=== PATIENT | female | born 1950 | race Caucasian/White ===

== ENCOUNTER 2017-02-17 20:37 | Emergency (ER) | payer MEDICARE, BC ==
[2017-02-17] MEDS ORDERED: Bacitracin/Neomycin/Polymyxin B Oint 0.9 GM U/D Packet TOP ONE (20:47)
--- NOTE | 2017-02-17 20:47 | EDM.PDOC ---
ED HPI Skin/Rash - General Chief Complaint: Laceration Stated Complaint: left leg laceration Time Seen by Provider: 02/17/17 20:37 Source: Reports: Patient, Old records ([facility] chart /EMR), Other (friend) History Limitations: Reports: No limitations - History of Present Illness INITIAL COMMENTS - FREE TEXT/NARRATIVE: The patient was brought to the emergency room via private automobile by her friend for evaluation of a laceration of her left leg, which occurred at home at about 19:30 hours when she was weedeating without wearing long pants. No history of foreign body, paresthesias, or other complaints or injuries. Her last tetanus booster was about 10 years ago. No treatment prior to arrival. She complains of about 4/10 discomfort at laceration site Symptom Onset Date: 02/17/17 Symptom Onset Time: 19:30 Timing: Reports: still present Location, Skin: Reports: lower extremity, left. Denies: head, face, neck, chest , abdomen, back, pelvis, upper extremity, right, upper extremity, left, lower extremity, right Quality: Reports: Ache, Sharp Severity: mild Known Identified Source: yes Place of Occurrence: home Sick Contact: no Associated Symptoms: Reports: no other symptoms. 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) - Related Data Allergies Allergy/AdvReac Type Severity Reaction Status Date / Time adalimumab [From Humira] Allergy Other Verified 02/17/17 20:40 codeine Allergy Headache Verified 02/17/17 20:40 ibuprofen Allergy Stomach Verified 02/17/17 20:40 Ache methotrexate Allergy Other Verified 02/17/17 20:40 Home Meds: Ambulatory Orders Medication Instructions Recorded Confirmed ALPRAZolam [Alprazolam] 0.25 mg PO BID 02/17/17 02/17/17 Abatacept [Orencia] 500 mg IV Q30D 02/17/17 02/17/17 Acetaminophen [Tylenol Extra 500 mg PO Q6H PRN 02/17/17 02/17/17 Strength] Taty/Cell/Lipas/Malt/Prt/Lac/in 1 each PO DAILY 02/17/17 02/17/17 [Digestive Enzymes Capsule] Atenolol 50 mg PO DAILY 02/17/17 02/17/17 Cholecalciferol (Vitamin D3) 2,000 unit PO DAILY 02/17/17 02/17/17 [Vitamin D3] Cranberry Fruit Concentrate 450 mg PO BID 02/17/17 02/17/17 [Cranberry] Dextran 70/Hypromellose 15 ml OP BID 02/17/17 02/17/17 [Artificial Tears Eye Drops] predniSONE [Prednisone] 7 mg PO DAILY 02/17/17 02/17/17 traMADol [Ultram] 50 mg PO Q6H PRN 02/17/17 02/17/17 Past Medical History HEENT History: Reports: Hard of hearing, Impaired vision, Otitis media, Other ( see below). 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 Denies: Afib, Aneurysm, Blood clots/VTE/DVT, CAD, Heart Failure, High cholesterol, Hypertension, DE, PVD, Syncope Other Cardiovascular History: Unknown type of tachycardia with current beta marcia therapy, cardiomegaly by chest x-ray on 06/28/04 with no heart disease by distant echocardiogram per patient history Respiratory History: Reports: COPD, Pulmonary fibrosis, Other (see below). Denies: Asthma, Bronchitis, recurrent, Intubation, previous, PE, Pneumonia, recurrent, Pneumothorax, Sleep apnea, TB Other Respiratory History: COPD and pulmonary fibrosis by chest x-ray with no current medical therapy Gastrointestinal History: Reports: Chronic constipation, Gastritis, Hemorrhoids , Other (see below). Denies: Celiac disease, Cholelithiasis, Chronic diarrhea, Colon polyp, Diverticulosis, GERD, GI bleed, Hepatitis, Hiatal hernia, Inflammatory bowel disease, Irritable bowel syndrome, Jaundice, Pancreatitis, PUD Other Gastrointestinal History: Gastritis secondary to NSAIDs therapy Genitourinary History: Reports: UTI, recurrent. 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 Denies: Dysfunctional uterine bleeding, Endometriosis, Fibroids, Spontaneous , Therapeutic : 2 Para: 2 (Full term without complications during pregnancies or deliveries) LMP (Approximate): Menopausal (In her 50s) Musculoskeletal History: Reports: Arthritis, Back pain, chronic, Neck pain, chronic, Osteoarthritis, Osteoporosis, RA, Other (see below). Denies: Amputation, Fracture, Gout, SLE Other Musculoskeletal History: Severe rheumatoid arthritis initially diagnosed in 1968 at age 18, scoliosis Neurological History: Reports: None. Denies: Alzheimers disease, Cerebral aneurysms, Concussion, CVA, Headaches, chronic, Head trauma, Migraines, MS, Neuropathy, peripheral, Parkinson's, Reflex sympathetic dystrophy, Seizure, TIA Psychiatric History: Reports: Addiction, Anxiety, Depression, Other (see below) . Denies: Abuse, victim of, ADD, ADHD, Psych Hospitalization(s), PTSD, Suicide attempt, Suicidal ideation Other Psychiatric History: Chronic Ultram use Endocrine/Metabolic History: Reports: Osteoporosis, Vitamin D deficiency. Denies: Diabetes, type I, Diabetes, type II, Hypothyroidism, IDDM Hematologic History: Reports: None. Denies: Anemia, B12 deficiency, Blood transfusion(s), Iron deficiency Immunologic History: Reports: Immunosuppression, Other (see below). Denies: AIDS, HIV, SLE Other Immunologic History: Immunosuppression secondary to current therapy for her rheumatoid arthritis Oncologic (Cancer) History: Reports: None. Denies: Basal cell carcinoma, Cervix , Hodgkin's Lymphoma, Leukemia, Lymphoma, Malignant melanoma, Non-Hodgkin's Lymphoma, Squamous cell carcinoma Dermatologic History: Denies: Eczema, Psoriasis - Infectious Disease History Infectious Disease History: Reports: Chicken pox, Rubella. Denies: C-difficile , Measles, Meningitis, Mononucleosis, MRSA, Mumps, Pertussis (whooping cough), Rheumatic Fever, Scarlet fever, Shingles, TB, VRE - Past Surgical History Head Surgeries/Procedures: Reports: None HEENT Surgical History: Reports: Oral surgery, Other (see below). Denies: Adenoidectomy, Cataract surgery, Eye surgery, Laser surgery, LASIK, Myringotomy w tube(s), Naso-sinus surgery, Tonsillectomy Other HEENT Surgeries/Procedures: Partial uppers Cardiovascular Surgical History: Reports: None. Denies: Varicose Respiratory Surgical History: Reports: None. Denies: Thoracentesis GI Surgical History: Reports: Colonoscopy, Other (see below). Denies: Appendectomy, Cholecystectomy, EGD, Hernia, abdominal, Hernia, inguinal, Hernia repair/other, Polypectomy Other GI Surgeries/Procedures: Anoscopy in about 2006 Female Surgical History: Reports: Tubal ligation, Other (see below). Denies : Breast biopsy, section, D&C, Hysterectomy Other Female Surgeries/Procedures: Tubal ligation in 1984 Endocrine Surgical History: Reports: None. Denies: Thyroid biopsy Neurological Surgical History: Reports: None. Denies: C-Spine, Discectomy, Laminectomy, Lumbar spine, Spinal fusion, Vertebroplasty Musculoskeletal Surgical History: Reports: Arthroscopic knee, Arthroscopic procedure, Shoulder surgery, Other (see below). Denies: Carpal tunnel, Ganglion cyst, Joint replacement, Knee replacement, ORIF Other Musculoskeletal Surgeries/Procedures:: Initial arthroscopic right knee surgery in 1967 with subsequent open right knee surgery in 1977, bunionectomy, hammertoe, and neuroma excision bilateral in the Oncologic Surgical History: Reports: None. Denies: Biopsy of breast Dermatological Surgical History: Reports: None - Past Imaging History Past Imaging History: Reports: Cardiac echo (In early ) Social & Family History - Tobacco Use Smoking Status *Q: Never Smoker Smoking Cessation Information Provided To Patient: No Second Hand Smoke Exposure: No Second Hand Smoke Education Provided: No - Caffeine Use Caffeine Use: Reports: Tea (2 glasses per day). 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 Denies: fever, chills, weakness, fatigue , night sweats, diaphoresis, weight loss HEENT: Reports: Glasses, Hearing loss (Chronic left-sided near deafness). Denies: Dental pain, Ear discharge, Ear pain, Eye pain, Vertigo Respiratory: Reports: No Symptoms. Denies: Shortness of Breath, Cough Cardiovascular: Reports: No symptoms. Denies: Blood pressure problem, Dyspnea on exertion, Edema, Lightheadedness, Palpitations Endocrine: Reports: no symptoms GI/Abdominal: Reports: No symptoms. Denies: Abdominal pain, Anorexia, Black stool, Constipation, Diarrhea, Distension, Flatus, Hematochezia, Melena, Nausea , Stool incontinence, Vomiting : Reports: no symptoms. Denies: dysuria, flank pain, hematuria, urgency Musculoskeletal: Reports: leg pain (Secondary to laceration), joint pain ( Stable chronic), joint swelling (Stable chronic). Denies: neck pain, shoulder pain, arm pain, back pain, foot pain Skin: Reports: wound. Denies: diaphoresis, bruising Neurological: Reports: No Symptoms. Denies: Confusion, Dizziness, Numbness, Paresthesia, Tingling, Difficulty Walking, Weakness Psychiatric: Reports: No symptoms. Denies: Agitation, Anxiety, Depression Hematologic/Lymphatic: Reports: no symptoms Immunologic: Reports: no symptoms ED EXAM, SKIN/RASH Exam: See Below Exam Limited By: No limitations General Appearance: alert, WD/WN, no apparent distress Head: atraumatic, normocephalic Neck: normal inspection, supple, non-tender, full range of motion. No: lymphadenopathy (L), lymphadenopathy (R), thyromegaly Respiratory/Chest: no respiratory distress, lungs clear, normal breath sounds, no accessory muscle use, chest non-tender. No: pleural rub, retractions Cardiovascular: normal peripheral pulses, regular rate, rhythm, no edema, no gallop, no JVD, no murmur, no rub. No: gallop/S3, gallop/S4, friction rub Peripheral Pulses: 2+: radial (L), radial (R), dorsalis pedis (L), dorsalis pedis (R) GI/Abdominal: normal bowel sounds, soft, non tender, no organomegaly, no distention, no abnormal bruit, no mass. No: guarding (Female) Exam: Deferred Rectal (Female) Exam: Deferred Back Exam: normal inspection, full range of motion. No: CVA tenderness (L), CVA tenderness (R), muscle spasm Extremities: no pedal edema, normal capillary refill, joint swelling (Stable secondary to rheumatoid arthritis), leg pain (Palpation pain and laceration site ), limited range of motion (Secondary to diffuse severe rheumatoid arthritic changes), other (4 cm in length superficial laceration just superior to the left medial malleolus with 2 additional 2-3 cm in length superficial scratches just appeared to this area, no foreign body). No: Jey's Sign Neurological: alert, oriented, CN II-XII intact, normal cognition, normal gait, no motor/sensory deficits Psychiatric: normal affect, normal mood. No: anxious, depressed mood Skin: Warm, Dry, No rash, Wound/incision (As above). No: Diaphoretic, Ecchymosis Location, Skin: lower extremity, left Characteristics: linear, other (As above) Lymphatic: no adenopathy Course - Vital Signs Last Recorded V/S: Last Vital Signs Temp 36.8 C 02/17/17 20:45 Pulse 81 02/17/17 20:45 Resp 16 02/17/17 20:45 BP 156/72 H 02/17/17 20:45 Pulse Ox 98 02/17/17 20:45 Vital Signs - 24 hr 02/17/17 20:45 Temperature [ 36.8 C Oral] Pulse, 81 Peripheral [ Right Pulse Oximetry] Respiratory 16 Rate Blood Pressure 156/72 H [Right Upper Arm] O2 Sat by Pulse 98 Oximetry - Orders/Labs/Meds Orders: Active Orders 24 hr Category Date Time Status Vaccines to be Administered [RC] PER UNIT ROUTINE Care 02/17/17 20:48 Active Labs: None Meds: Medications Discontinued Medications Generic Name Dose Route Start Last Admin Trade Name Freq PRN Reason Stop Dose Admin Diphtheria/Tetanus/Acell Pertussis 0.5 ml 02/17/17 20:48 02/17/17 20:57 Adacel IM 02/17/17 20:49 0.5 ml .ONCE ONE Administration Neomycin/Polymyxin/Bacitracin 1 each 02/17/17 20:47 02/17/17 20:57 Triple Antibiotic Oint TOP 02/17/17 20:48 1 each ONETIME ONE Administration Medications Discontinued Medications Generic Name Dose Route Start Last Admin Trade Name Freq PRN Reason Stop Dose Admin Diphtheria/Tetanus/Acell Pertussis 0.5 ml 02/17/17 20:48 02/17/17 20:57 Adacel IM 02/17/17 20:49 0.5 ml .ONCE ONE Administration Neomycin/Polymyxin/Bacitracin 1 each 02/17/17 20:47 02/17/17 20:57 Triple Antibiotic Oint TOP 02/17/17 20:48 1 each ONETIME ONE Administration - Radiology Interpretation Free Text/Narrative:: None Departure - Departure Time of Disposition: 21:35 Disposition: Home, Self-Care 01 Condition: good Clinical Impression: Laceration, Mixed anxiety depressive disorder Rheumatoid arthritis Qualifiers: Rheumatoid arthritis location: multiple sites Rheumatoid factor presence: unspecified presence Qualified Code(s): M06.9 - Rheumatoid arthritis, unspecified Instructions: Laceration Care, Adult, [id number] Referrals: Luba Elliott PA [Primary Care Provider] - Forms: ED Department Discharge Additional Instructions: 1. Follow up with your regular provider in 10-14 days as needed, if symptoms persist. 2. Antibacterial soap wash/soak with subsequent antibacterial dressing such as Neosporin, etc. as directed 2 times per day until the wound or laceration site completely heals. Keep the area clean and dry with activity restrictions as discussed. - Problem List & Annotations (1) Laceration SNOMED Code(s): 205332782 Code(s): LKH9239 - Status: Acute Priority: High Onset Date: 02/17/17 Annotation/Comment:: No laceration repair indicated with this injury. DTaP given. Wound care discussed. High risk for infection secondary to current immunotherapy for her rheumatoid arthritis, which will be closely observed by the patient (2) Rheumatoid arthritis SNOMED Code(s): 94400463 Code(s): M06.9 - RHEUMATOID ARTHRITIS, UNSPECIFIED Status: Chronic Priority: Medium Annotation/Comment:: Stable by history Qualifiers: Rheumatoid arthritis location: multiple sites Rheumatoid factor presence: unspecified presence Qualified Code(s): M06.9 - Rheumatoid arthritis, unspecified (3) Mixed anxiety depressive disorder SNOMED Code(s): 302346147 Code(s): F41.8 - OTHER SPECIFIED ANXIETY DISORDERS Status: Chronic Priority: Medium Annotation/Comment:: Stable by history - Problem List Review Problem List Initiated/Reviewed/Updated: Yes - My Orders Last 24 Hours: My Active Orders 02/17/17 20:48 Vaccines to be Administered [RC] PER UNIT ROUTINE - Assessment/Plan Last 24 Hours: My Active Orders 02/17/17 20:48 Vaccines to be Administered [RC] PER UNIT ROUTINE Assessment:: As above Plan: As above. Extensive precautions were given to the patient, who is in agreement with the treatment plan. See Patient Instructions for further treatment and plan.
[2017-02-17] MEDS ORDERED: Diphtheria,Pertussis(Acell),Tetanus Vaccine 0.5 ML SDV IM ONE (20:48)
[2017-02-17 20:51] VITALS: BP 156/72
== END 2017-02-17 21:35 | disposition home or self-care (01) ==
LOC: LL.ED 20:37
DX: S91.012A Laceration without foreign body, left ankle, initial encounter (principal); F41.8 Other specified anxiety disorders; M06.9 Rheumatoid arthritis, unspecified; Z88.5 Allergy status to narcotic agent; V89.2XXA Person injured in unspecified motor-vehicle accident, traffic, initial encounter; Z79.899 Other long term (current) drug therapy
CPT/HCPCS: 90471; 90715; 99283

== ENCOUNTER 2018-06-01 12:27 | Emergency (ER) | payer MEDICARE, BC ==
[2018-06-01 12:28] VITALS: BP 126/69
--- NOTE | 2018-06-01 12:55 | EDM.PDOC ---
ED HPI GENERAL MEDICAL PROBLEM - General Chief Complaint: General Stated Complaint: Thoracic pain Time Seen by Provider: 06/01/18 12:29 Source of Information: Reports: Patient History Limitations: Reports: No Limitations - History of Present Illness INITIAL COMMENTS - FREE TEXT/NARRATIVE: Patient is a 68-year-old seen with midsternal chest pain patient states that she was working when she developed the mid chest pain the pain is worse with deep breathing and coughing and palpation. Patient took Motrin which made the pain improve Onset: Today, Sudden Duration: Hour(s):, Constant Location: Reports: Chest Quality: Reports: Ache Severity: Moderate Improves with: Reports: Medication, Rest Worsens with: Reports: Breathing, Movement Context: Reports: Exercise Associated Symptoms: Reports: No Other Symptoms Thoracic Pain Score (Numeric/FACES): 5 - Related Data Allergies Allergy/AdvReac Type Severity Reaction Status Date / Time adalimumab [From Humira] Allergy Other Verified 02/17/17 20:40 codeine Allergy Headache Verified 02/17/17 20:40 ibuprofen Allergy Stomach Verified 02/17/17 20:40 Ache methotrexate Allergy Other Verified 02/17/17 20:40 minocycline Allergy Other Verified 06/01/18 12:38 venlafaxine [From Effexor] Allergy Other Verified 06/01/18 12:38 Home Meds: Home Meds ALPRAZolam [Alprazolam] 0.25 mg PO BID 02/17/17 [History] Abatacept [Orencia] 500 mg IV Q30D 02/17/17 [History] Acetaminophen [Tylenol Extra Strength] 500 mg PO Q6H PRN 02/17/17 [History] Taty/Cell/Lipas/Malt/Prt/Lac/in [Digestive Enzymes Capsule] 1 each PO DAILY 02/17 [History] Atenolol 50 mg PO DAILY 02/17/17 [History] Cholecalciferol (Vitamin D3) [Vitamin D3] 2,000 unit PO DAILY 02/17/17 [History] Cranberry Fruit Concentrate [Cranberry] 450 mg PO BID 02/17/17 [History] Dextran 70/Hypromellose [Artificial Tears Eye Drops] 15 ml OP BID 02/17/17 [ History] predniSONE [Prednisone] 7 mg PO DAILY 02/17/17 [History] traMADol [Ultram] 50 mg PO Q6H PRN 02/17/17 [History] Past Medical History HEENT History: Reports: Hard of Hearing, Impaired Vision, Otitis Media, Other ( See Below) Other HEENT History: 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 secondary to previous chronic and recurrent otitis media as a child, patient wears glasses, dry eye syndrome Cardiovascular History: Reports: Arrhythmia, Cardiomyopathy, Other (See Below) Other Cardiovascular History: Unknown type of tachycardia with current beta marcia therapy, cardiomegaly by chest x-ray on 06/28/04 with no heart disease by distant echocardiogram per patient history Respiratory History: Reports: COPD, Pulmonary Fibrosis, Other (See Below) Other Respiratory History: COPD and pulmonary fibrosis by chest x-ray with no current medical therapy Gastrointestinal History: Reports: Chronic Constipation, Gastritis, Hemorrhoids , Other (See Below) Other Gastrointestinal History: Gastritis secondary to NSAIDs therapy Genitourinary History: Reports: UTI, Recurrent 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 Denies: Dysfunctional Uterine Bleeding, Endometriosis, Fibroids, Spontaneous , Therapeutic Musculoskeletal History: Reports: Arthritis, Back Pain, Chronic, Neck Pain, Chronic, Osteoarthritis, Osteoporosis, RA, Other (See Below) Other Musculoskeletal History: Severe rheumatoid arthritis initially diagnosed in 1967 at age 18, scoliosis Neurological History: Reports: None. Denies: Alzheimers Disease, Cerebral Aneurysms, Concussion, CVA, Headaches, Chronic, Head Trauma, Migraines, MS, Neuropathy, Peripheral, Parkinson's, Reflex Sympathetic Dystrophy, Seizure, TIA Psychiatric History: Reports: Addiction, Anxiety, Depression, Other (See Below) Other Psychiatric History: Chronic Ultram use Endocrine/Metabolic History: Reports: Osteoporosis, Vitamin D Deficiency Hematologic History: Reports: None. 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 Denies: Basal Cell Carcinoma, Cervix , Hodgkin's Lymphoma, Leukemia, Lymphoma, Malignant Melanoma, Non-Hodgkin's Lymphoma, Squamous Cell Carcinoma - Infectious Disease History Infectious Disease History: Reports: Chicken Pox, Rubella - Past Surgical History HEENT Surgical History: Reports: Oral Surgery, Other (See Below) GI Surgical History: Reports: Colonoscopy, Other (See Below) Female Surgical History: Reports: Tubal Ligation, Other (See Below) Musculoskeletal Surgical History: Reports: Arthroscopic Knee, Arthroscopic Procedure, Shoulder Surgery, Other (See Below) - Past Imaging History Past Imaging History: Reports: Cardiac Echo Social & Family History - Tobacco Use Smoking Status *Q: Never Smoker Second Hand Smoke Exposure: Yes - Caffeine Use Caffeine Use: Reports: Tea - Recreational Drug Use Recreational Drug Use: No - Living Situation & Occupation Living situation: Reports: , Alone Occupation: Retired ED ROS GENERAL - Review of Systems Review Of Systems: See Below Constitutional: Reports: No Symptoms HEENT: Reports: No Symptoms Respiratory: Reports: Cough Cardiovascular: Reports: No Symptoms, Chest Pain Endocrine: Reports: No Symptoms GI/Abdominal: Reports: No Symptoms Musculoskeletal: Reports: Muscle Pain Skin: Reports: No Symptoms Neurological: Reports: No Symptoms Psychiatric: Reports: No Symptoms Hematologic/Lymphatic: Reports: No Symptoms Immunologic: Reports: No Symptoms ED EXAM, GENERAL - Physical Exam Exam: See Below Exam Limited By: No Limitations General Appearance: Alert, WD/WN, No Apparent Distress Ears: Normal External Exam Ear Exam: Bilateral Ear: Auricle Normal, Canal Normal, TM normal Nose: Normal Inspection, Normal Mucosa, No Blood Throat/Mouth: Normal Inspection, Normal Lips, Normal Teeth, Normal Gums, Normal Oropharynx, Normal Voice, No Airway Compromise Head: Atraumatic, Normocephalic Neck: Normal Inspection, Supple, Non-Tender, Full Range of Motion Respiratory/Chest: Lungs Clear, Normal Breath Sounds. No: Chest Non-Tender Cardiovascular: Normal Peripheral Pulses, Regular Rate, Rhythm, No Edema, No Gallop, No JVD, No Murmur, No Rub GI/Abdominal: Normal Bowel Sounds, Soft, Non-Tender, No Organomegaly, No Distention, No Abnormal Bruit, No Mass (Female) Exam: Deferred Course - Vital Signs Last Recorded V/S: Last Vital Signs Temp 98.3 F 06/01/18 12:28 Pulse 74 06/01/18 12:28 Resp 12 06/01/18 12:28 BP 126/69 06/01/18 12:28 Pulse Ox 100 06/01/18 12:28 - Orders/Labs/Meds Orders: Active Orders 24 hr Category Date Time Status EKG Documentation Completion [RC] ASDIRECTED Care 06/01/18 12:40 Active Chest 2V [CR] Stat Exams 06/01/18 12:40 Ordered BMP [BASIC METABOLIC PANEL,BMP] [CHEM] Stat Lab 06/01/18 12:45 Received CBC WITH AUTO DIFF [HEME] Stat Lab 06/01/18 12:45 Received TROPONIN I [CHEM] Stat Lab 06/01/18 12:45 Received EKG 12 Lead [EK] Routine Ther 06/01/18 12:39 Ordered Departure - Departure Time of Disposition: 12:58 Disposition: Home, Self-Care 01 Condition: Good Clinical Impression: Costochondritis, acute - Discharge Information *PRESCRIPTION DRUG MONITORING PROGRAM REVIEWED*: Not Applicable *COPY OF PRESCRIPTION DRUG MONITORING REPORT IN PATIENT ANTWAN: Not Applicable Referrals: Kirstin Mendez PA-C [Primary Care Provider] - Care Plan Goals: Restart her pain medications this will help with chest pain which is musculoskeletal and follow-up with primary as needed - My Orders Last 24 Hours: My Active Orders 06/01/18 12:39 EKG 12 Lead [EK] Routine 06/01/18 12:40 EKG Documentation Completion [RC] ASDIRECTED Chest 2V [CR] Stat 06/01/18 12:45 BMP [BASIC METABOLIC PANEL,BMP] [CHEM] Stat CBC WITH AUTO DIFF [HEME] Stat TROPONIN I [CHEM] Stat - Assessment/Plan Last 24 Hours: My Active Orders 06/01/18 12:39 EKG 12 Lead [EK] Routine 06/01/18 12:40 EKG Documentation Completion [RC] ASDIRECTED Chest 2V [CR] Stat 06/01/18 12:45 BMP [BASIC METABOLIC PANEL,BMP] [CHEM] Stat CBC WITH AUTO DIFF [HEME] Stat TROPONIN I [CHEM] Stat
[2018-06-01 13:09] LABS: CHLORIDE,CL 105 mmol/L (98-107); SODIUM,NA 141 mmol/L (136-145)
== END 2018-06-01 13:25 | disposition home or self-care (01) ==
LOC: LL.ED 12:27
DX: M94.0 Chondrocostal junction syndrome [Tietze] (principal); J44.9 Chronic obstructive pulmonary disease, unspecified; M06.9 Rheumatoid arthritis, unspecified; Z88.5 Allergy status to narcotic agent; Z88.8 Allergy status to other drugs, medicaments and biological substances; Z79.899 Other long term (current) drug therapy
CPT/HCPCS: 36415; 71046; 80048; 84484; 85025; 93005; 99284

== ENCOUNTER 2019-11-25 18:39 | Emergency (ER) | payer MEDICARE, BC ==
[2019-11-25 18:44] VITALS: PULSE 70
[2019-11-25] MEDS ORDERED: Loperamide 2 MG Tab PO ONE (19:26)
[2019-11-25 19:34] LABS: CHLORIDE,CL 100 mmol/L (98-107); SODIUM,NA 139 mmol/L (136-145)
--- NOTE | 2019-11-25 19:36 | EDM.PDOC ---
ED HPI GENERAL MEDICAL PROBLEM - General Chief Complaint: Gastrointestinal Problem Stated Complaint: diarrhea Time Seen by Provider: 11/25/19 19:16 Source of Information: Reports: Patient History Limitations: Reports: No Limitations - History of Present Illness INITIAL COMMENTS - FREE TEXT/NARRATIVE: Patient comes to ER with complaint of approx 12 episodes of loose stools over the last 24 hours. No emesis/nausea. No fevers/chills. Has some fatigue and intermittent abdominal cramping. Was worried due to history of norovirus that led to her needing to be hospitalized a few years ago. No HEENT changes such as PEREZ/sore throat/congestion. No RESP changes such as cough/wheeze/SOB. Denies palpitations/chest discomfort. No back pain. Does not have dysuria/frequency/hematuria. No appetite. Has had mostly gatorade since diarrhea started. No body aches or other musculoskeletal changes. Has not taken any meds for the diarrhea. Generalized Pain Score (Numeric/FACES): 4 - Related Data Allergies Allergy/AdvReac Type Severity Reaction Status Date / Time adalimumab [From Humira] Allergy Other Verified 11/25/19 19:10 aspirin Allergy Stomach Verified 11/25/19 19:10 Ache atorvastatin Allergy Joint Pain Verified 11/25/19 19:10 codeine Allergy Headache Verified 11/25/19 19:10 hydrocodone Allergy Headache Verified 11/25/19 19:10 ibuprofen Allergy Stomach Verified 11/25/19 19:10 Ache methotrexate Allergy Other Verified 11/25/19 19:10 minocycline Allergy Other Verified 11/25/19 19:10 rofecoxib Allergy Other Verified 11/25/19 19:10 sertraline Allergy Other Verified 11/25/19 19:10 venlafaxine [From Effexor] Allergy Other Verified 11/25/19 19:10 Home Meds: Home Meds ALPRAZolam [Alprazolam] 0.25 mg PO BID 02/17/17 [History] Abatacept [Orencia] 500 mg IV Q30D 02/17/17 [History] Acetaminophen [Tylenol Extra Strength] 500 mg PO Q6H PRN 02/17/17 [History] Taty/Cell/Lipas/Malt/Prt/Lac/in [Digestive Enzymes Capsule] 1 each PO DAILY 02/17 [History] Cholecalciferol (Vitamin D3) [Vitamin D3] 2,000 unit PO DAILY 02/17/17 [History] Cranberry Fruit Concentrate [Cranberry] 3 cap PO BID 02/17/17 [History] Dextran 70/Hypromellose [Artificial Tears Eye Drops] 15 ml OP BID 02/17/17 [ History] atenoloL [Atenolol] 50 mg PO DAILY 02/17/17 [History] predniSONE [Prednisone] 5 mg PO DAILY 02/17/17 [History] traMADol [Ultram] 1 - 2 tab PO Q6H PRN 02/17/17 [History] Calcium Carbonate [Tums Extra Strength] 1 tab PO Q4H PRN 11/25/19 [History] Multivitamin [Poly-Vitamin] 1 tab PO DAILY 11/25/19 [History] diphenhydrAMINE HCl [Benadryl] 1 tab PO ASDIRECTED PRN 11/25/19 [History] predniSONE [Prednisone] 1 mg PO DAILY 11/25/19 [History] Past Medical History HEENT History: Reports: Hard of Hearing, Impaired Vision, Otitis Media, Other ( See Below) Other HEENT History: 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 secondary to previous chronic and recurrent otitis media as a child, patient wears glasses, dry eye syndrome Cardiovascular History: Reports: Arrhythmia, Cardiomyopathy, Other (See Below) Other Cardiovascular History: Unknown type of tachycardia with current beta marcia therapy, cardiomegaly by chest x-ray on 06/28/04 with no heart disease by distant echocardiogram per patient history Respiratory History: Reports: COPD, Pulmonary Fibrosis, Other (See Below) Other Respiratory History: COPD and pulmonary fibrosis by chest x-ray with no current medical therapy Gastrointestinal History: Reports: Chronic Constipation, Gastritis, Hemorrhoids , Other (See Below) Other Gastrointestinal History: Gastritis secondary to NSAIDs therapy Genitourinary History: Reports: UTI, Recurrent [employer] History: Reports: . Denies: Dysfunctional Uterine Bleeding, Endometriosis, Fibroids, Spontaneous , Therapeutic Musculoskeletal History: Reports: Arthritis, Back Pain, Chronic, Neck Pain, Chronic, Osteoarthritis, Osteoporosis, RA, Other (See Below) Other Musculoskeletal History: Severe rheumatoid arthritis initially diagnosed in 1968 at age 18, scoliosis Neurological History: Reports: None. Denies: Alzheimers Disease, Cerebral Aneurysms, Concussion, CVA, Headaches, Chronic, Head Trauma, Migraines, MS, Neuropathy, Peripheral, Parkinson's, Reflex Sympathetic Dystrophy, Seizure, TIA Psychiatric History: Reports: Addiction, Anxiety, Depression, Other (See Below) Other Psychiatric History: Chronic Ultram use Endocrine/Metabolic History: Reports: Osteoporosis, Vitamin D Deficiency Hematologic History: Reports: None. 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 Denies: Basal Cell Carcinoma, Cervix , Hodgkin's Lymphoma, Leukemia, Lymphoma, Malignant Melanoma, Non-Hodgkin's Lymphoma, Squamous Cell Carcinoma - Infectious Disease History Infectious Disease History: Reports: Chicken Pox, Rubella - Past Surgical History HEENT Surgical History: Reports: Oral Surgery, Other (See Below) GI Surgical History: Reports: Colonoscopy, Other (See Below) Female Surgical History: Reports: Tubal Ligation, Other (See Below) Musculoskeletal Surgical History: Reports: Arthroscopic Knee, Arthroscopic Procedure, Shoulder Surgery, Other (See Below) - Past Imaging History Past Imaging History: Reports: Cardiac Echo Social & Family History - Caffeine Use Caffeine Use: Reports: Tea - Living Situation & Occupation Living situation: Reports: , Alone Occupation: Retired ED ROS GENERAL - Review of Systems Review Of Systems: Comprehensive ROS is negative, except as noted in HPI. ED EXAM, GENERAL - Physical Exam Exam: See Below Exam Limited By: No Limitations General Appearance: Alert, WD/WN, No Apparent Distress Eye Exam: Bilateral Eye: EOMI, PERRL Ears: Hearing Grossly Normal Nose: No: Nasal Deformity, Nasal Swelling, Nasal Drainage Throat/Mouth: Normal Lips, Normal Voice, No Airway Compromise Head: Atraumatic, Normocephalic Neck: Supple, Non-Tender, Full Range of Motion Respiratory/Chest: No Respiratory Distress, Lungs Clear, Normal Breath Sounds, No Accessory Muscle Use, Chest Non-Tender Cardiovascular: Regular Rate, Rhythm, No Edema, No Murmur GI/Abdominal: Normal Bowel Sounds, Soft, Non-Tender, No Distention, No Abnormal Bruit, No Mass (Female) Exam: Deferred Rectal (Female) Exam: Deferred Back Exam: Normal Inspection. No: CVA Tenderness (L), CVA Tenderness (R), Muscle Spasm Extremities: Normal Inspection, Normal Capillary Refill Neurological: Alert, Oriented, Normal Cognition, Normal Gait Psychiatric: Normal Affect, Normal Mood Skin Exam: Warm, Dry, Intact, Normal Color Course - Vital Signs Last Recorded V/S: Last Vital Signs Temp 37.3 C 11/25/19 18:43 Pulse 70 11/25/19 18:43 Resp 16 11/25/19 18:43 BP 127/74 11/25/19 18:43 Pulse Ox 98 11/25/19 18:43 - Orders/Labs/Meds Orders: Active Orders 24 hr Category Date Time Status Abdomen 2V AP Flat Upright [CR] Stat Exams 11/25/19 19:17 Ordered COMPREHENSIVE METABOLIC PN,CMP [CHEM] Stat Lab 11/25/19 19:05 Received Labs: Laboratory Tests 11/25/19 11/25/19 Range/Units 19:00 19:05 WBC 20.7 H (4.0-10.2) K/uL RBC 5.40 H (3.77-5.09) M/uL Hgb 15.3 D (11.7-15.5) g/dL Hct 47.1 H (34.0-46.0) % MCV 87.2 (84.0-98.0) fL MCH 28.3 (28.2-33.3) pg MCHC 32.5 (31.7-36.0) g/dL RDW 14.5 H (11.2-14.1) % Plt Count 366 H (150-350) K/uL Neut % (Auto) 81.8 H (45.0-80.0) % Lymph % (Auto) 10.4 (10.0-50.0) % [place] % (Auto) 7.3 (2.0-14.0) % Eos % (Auto) 0.2 (0.0-5.0) % Baso % (Auto) 0.3 (0.0-2.0) % Neut # (Auto) 16.92 H (1.40-7.00) K/uL Lymph # (Auto) 2.16 (0.50-3.50) K/uL [place]ax # (Auto) 1.51 H (0.00-1.00) K/uL Eos # (Auto) 0.04 (0.00-0.50) K/uL Baso # (Auto) 0.06 (0.00-0.20) K/uL Specimen Type Urinblad Urine Color Dark yellow Urine Appearance Clear Urine pH 5.5 (5.0-9.0) Ur Specific Kegley 1.020 (1.005-1.030) Urine Protein Negative (NEGATIVE) mg/dL Urine Glucose (UA) Negative (NEGATIVE) mg/dL Urine Ketones Negative (NEGATIVE) mg/dL Urine Occult Blood Moderate H (NEGATIVE) Urine Nitrite Negative (NEGATIVE) Urine Bilirubin Negative (NEGATIVE) Urine Urobilinogen 0.2 (0.2-1.0) E.U./dL Ur Leukocyte Esterase Negative (NEGATIVE) Urine RBC 5-10 H /HPF Urine WBC 5-10 H /HPF Ur Epithelial Cells Few /LPF Urine Bacteria Few (NONE TO FEW) /HPF Urine Mucus Moderate H (NEGATIVE) /LPF Meds: Medications Discontinued Medications Generic Name Dose Route Start Last Admin Trade Name Freq PRN Reason Stop Dose Admin Loperamide HCl 4 mg 11/25/19 19:26 Imodium Ad PO 11/25/19 19:27 ONETIME ONE - Re-Assessments/Exams Free Text/Narrative Re-Assessment/Exam: 11/25/19 19:37 WBC elevated at 20,000. Suspect in part due to gastroenteritis, and also due to chronic daily prednisone patient takes for her R.A. Unremarkable physical exam. Normal vital signs. UA shows no evidence of dehydration and does not suggest UTI at this time. No L.E. or nitrite noted. Minimal bacteria. Xray shows some areas of gaseous distention and moderate stool. Does not suggest obstruction or ileus but needs to be reviewed by Radiology. Will treat conservatively for now. Single dose of Imodium given. Patient to observe for changes over the next 12-24 hours and is to follow up as needed if additional problems develop or if no significant improvement noted by Wednesday morning. She does have history of chronic constipation by history due to chronic pain meds for her arthritis. Therefore she is cautioned against taking much additional Imodium. Ok to repeat single dose Imodium tomorrow morning if loose stools continue. Departure - Departure Time of Disposition: 19:46 Disposition: Home, Self-Care 01 Condition: Good Clinical Impression: Diarrhea Qualifiers: Diarrhea type: unspecified type Qualified Code(s): R19.7 - Diarrhea, unspecified - Discharge Information *PRESCRIPTION DRUG MONITORING PROGRAM REVIEWED*: Not Applicable *COPY OF PRESCRIPTION DRUG MONITORING REPORT IN PATIENT ANTWAN: Not Applicable Referrals: Kirstin Mendez PA-C [Primary Care Provider] - Additional Instructions: See how things go over the next 12-24 hours. See if any new symptoms develop, such as fever, etc. Avoid taking more Imodium as we discussed due to your history of constipation but it is ok to take another pill tomorrow if you are still having frequent issues with diarrhea. Sometimes chronic constipation can lead to diarrhea developing even though you are still constipated. This may need to be looked into if it starts to appear that the diarrhea does not behave like viral gastroenteritis. Follow up in the ER if you have sudden worsening problems. Otherwise follow up in clinic on Wednesday for recheck if you have not noticed significant improvement in symptoms. Sepsis Event Note - Evaluation Sepsis Screening Result: No Definite Risk - Focused Exam Vital Signs: Vital Signs Temp Pulse Resp BP Pulse Ox 11/25/19 18:43 37.3 C 70 16 127/74 98 Date Exam was Performed: 11/25/19 Time Exam was Performed: 19:28 - My Orders Last 24 Hours: My Active Orders 11/25/19 19:05 COMPREHENSIVE METABOLIC PN,CMP [CHEM] Stat 11/25/19 19:17 Abdomen 2V AP Flat Upright [CR] Stat - Assessment/Plan Last 24 Hours: My Active Orders 11/25/19 19:05 COMPREHENSIVE METABOLIC PN,CMP [CHEM] Stat 11/25/19 19:17 Abdomen 2V AP Flat Upright [CR] Stat
[2019-11-25 20:23] VITALS: BP 110/58
== END 2019-11-25 20:00 | disposition home or self-care (01) ==
LOC: LL.ED 18:39
DX: R19.7 Diarrhea, unspecified (principal); J44.9 Chronic obstructive pulmonary disease, unspecified; Z88.1 Allergy status to other antibiotic agents; Z88.5 Allergy status to narcotic agent; Z88.6 Allergy status to analgesic agent; Z88.8 Allergy status to other drugs, medicaments and biological substances
CPT/HCPCS: 36415; 74019; 80053; 81001; 85025; 87804; 99284; A9270; 99283

== ENCOUNTER 2020-09-10 11:47 | Emergency (ER) | payer MEDICARE, BC ==
--- NOTE | 2020-09-10 11:54 | EDM.PDOC ---
ED HPI GENERAL MEDICAL PROBLEM - General Chief Complaint: Upper Extremity Injury/Pain Stated Complaint: fall, shoulder pain Time Seen by Provider: 09/10/20 11:47 Source of Information: Reports: Patient, Old Records ([facility] chart/EMR) History Limitations: Reports: No Limitations - History of Present Illness INITIAL COMMENTS - FREE TEXT/NARRATIVE: The patient was brought to the emergency room via private automobile by her daughter for evaluation of 05/27 right shoulder pain after a minor fall in the alley at her home at 10:45 AM this morning. She apparently slipped on the ice landing on her right shoulder and cheek with no history of other significant head injury, loss of consciousness, headaches, visual changes, neck/back pain, neurological deficits, or other complaints or injuries. She has not injured this shoulder in the past and is right-handed. Patient did take 50 mg of tramadol and apply ice shortly after the above accident with little improvement of her symptoms. The patient denies any chest pain/pressure, heart flutter, dizziness, orthostasis, orthopnea, diaphoresis, paresthesias, recent decreased exercise tolerance, or any other anginal-type symptoms. No recent history of abdominal pain, heartburn, nausea, diarrhea, melena, gross hematochezia, or any food intolerance, including fatty foods, etc.. The patient also denies any re cent fever, cough, wheezing, dyspnea, etc.. Onset: Today, Sudden Onset Date: 09/10/20 Onset Time: 10:45 Duration: Constant Location: Reports: Face, Upper Extremity, Right. Denies: Head, Neck, Chest, Abdomen, Back, Pelvis, Upper Extremity, Left, Lower Extremity, Left, Lower Extremity, Right, Radiates to Quality: Reports: Ache, Same as Previous Episode Severity: Moderate Improves with: Reports: Rest Worsens with: Reports: Movement Context: Reports: Trauma (As above) Associated Symptoms: Denies: Confusion, Chest Pain, Cough, cough w sputum, Diaphoresis, Fever/Chills, Headaches, Loss of Appetite, Nausea/Vomiting, Rash, Seizure, Shortness of Breath, Syncope, Weakness Treatments MUSE[employer] TOUR GUIDE: Reports: Cold Therapy, Other Medication(s) Right Shoulder Pain Score (Numeric/FACES): 8 - Related Data Allergies Allergy/AdvReac Type Severity Reaction Status Date / Time adalimumab [From Humira] Allergy Other Verified 09/10/20 11:56 aspirin Allergy Stomach Verified 09/10/20 11:56 Ache atorvastatin Allergy Joint Pain Verified 09/10/20 11:56 codeine Allergy Headache Verified 09/10/20 11:56 hydrocodone Allergy Headache Verified 09/10/20 11:56 ibuprofen Allergy Stomach Verified 09/10/20 11:56 Ache methotrexate Allergy Other Verified 09/10/20 11:56 minocycline Allergy Other Verified 09/10/20 11:56 rofecoxib Allergy Other Verified 09/10/20 11:56 sertraline Allergy Other Verified 09/10/20 11:56 venlafaxine [From Effexor] Allergy Other Verified 09/10/20 11:56 Home Meds: Home Meds ALPRAZolam [Alprazolam] 0.25 mg PO BID 02/17/17 [History] Abatacept [Orencia] 500 mg IV Q30D 02/17/17 [History] Acetaminophen [Tylenol Extra Strength] 500 mg PO Q6H PRN 02/17/17 [History] Taty/Cell/Lipas/Malt/Prt/Lac/in [Digestive Enzymes Capsule] 1 each PO DAILY 02/17/17 [History] Cholecalciferol (Vitamin D3) [Vitamin D3] 2,000 unit PO DAILY 02/17/17 [History] Cranberry Fruit Concentrate [Cranberry] 1 cap PO DAILY 02/17/17 [History] Dextran 70/Hypromellose [Artificial Tears Eye Drops] 15 ml OP BID 02/17/17 [History] atenoloL [Atenolol] 50 mg PO DAILY 02/17/17 [History] predniSONE [Prednisone] 5 mg PO DAILY 02/17/17 [History] traMADol [Ultram] 1 - 2 tab PO Q6H PRN 02/17/17 [History] Calcium Carbonate [Tums Extra Strength] 1 tab PO Q4H PRN 11/25/19 [History] Multivitamin [Poly-Vitamin] 1 tab PO DAILY 11/25/19 [History] diphenhydrAMINE HCL [Benadryl] 1 tab PO ASDIRECTED PRN 11/25/19 [History] predniSONE [Prednisone] 1 mg PO DAILY 11/25/19 [History] Past Medical History HEENT History: Reports: Hard of Hearing, Impaired Vision, Otitis Media, Other (See Below). 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 Patient wears glasses, dry eye syndrome. Cardiovascular History: Reports: Arrhythmia, Cardiomyopathy, Other (See Below). Denies: Afib, Aneurysm, Blood Clots/VTE/DVT, CAD, Heart Failure, High Cholesterol, Hypertension, [place], PVD, Syncope Other Cardiovascular History: Unknown type of tachycardia with current beta marcia therapy, cardiomegaly by chest x-ray on 06/28/04 with no heart disease by distant echocardiogram per patient history Respiratory History: Reports: COPD, Intubation, Previous, Pulmonary Fibrosis, Other (See Below). Denies: Asthma, Bronchitis, Recurrent, Intubation, Difficult , PE, Pneumonia, Recurrent, Pneumothorax, Sleep Apnea, TB Other Respiratory History: COPD and pulmonary fibrosis by chest x-ray with no current medical therapy Gastrointestinal History: Reports: Chronic Constipation, Gastritis, Hemorrhoids, Other (See Below). Denies: Celiac Disease, Cholelithiasis, Chronic Diarrhea, Colon Polyp, Fecal Incontinence, GERD, GI Bleed, Hepatitis, Hiatal Hernia, Inflammatory Bowel Disease, Irritable Bowel Syndrome, Jaundice, Pancreatitis, PUD Other Gastrointestinal History: Gastritis secondary to NSAIDs therapy Genitourinary History: Reports: UTI, Recurrent. Denies: Acute Renal Failure, Chronic Renal Insuffiency, Renal Calculus, STD, Urinary Incontinence GOLD CUTTER History: Reports: . Denies: Dysfunctional Uterine Bleeding, Endometriosis, Fibroids, Spontaneous , Therapeutic : 2 Para: 2 LMP (Approximate): Other (See Below) Other GOLD CUTTER History: Menopause in her 50s. Full term without complications during pregnancies or deliveries. Musculoskeletal History: Reports: Arthritis, Back Pain, Chronic, Neck Pain, Chronic, Osteoarthritis, Osteoporosis, RA, Other (See Below). Denies: Amputation, Fracture, Gout, SLE Other Musculoskeletal History: Severe rheumatoid arthritis initially diagnosed in 1967 at age 18 with current DMARD and prednisone therapy. Scoliosis. Neurological History: Reports: None. Denies: Alzheimers Disease, Cerebral Aneurysms, Concussion, CVA, Headaches, Chronic, Head Trauma, Migraines, MS, Neuropathy, Peripheral, Parkinson's, Reflex Sympathetic Dystrophy, Seizure, TIA Psychiatric History: Reports: Addiction, Anxiety, Depression, Other (See Below). Denies: Abuse, Victim of, ADD, ADHD, Alzheimers Disease, Dementia, Psych Hospitalization(s), PTSD, Suicide Attempt, Suicidal Ideation Other Psychiatric History: Chronic Ultram and Xanax use. Endocrine/Metabolic History: Reports: Osteopenia, Osteoporosis, Vitamin D Deficiency. Denies: Diabetes, Type I, Diabetes, Type II, Hypothyroidism, IDDM, Obesity/BMI 30+ Hematologic History: Reports: None. Denies: Anemia, B12 Deficiency, Blood Transfusion(s), Iron Deficiency Immunologic History: Reports: Immunosuppression, Other (See Below). Denies: SLE Other Immunologic History: Immunosuppression secondary to current therapy for her rheumatoid arthritis Oncologic (Cancer) History: Reports: None. Denies: Basal Cell Carcinoma, Cervix, Hodgkin's Lymphoma, Leukemia, Lymphoma, Malignant Melanoma, Non- Hodgkin's Lymphoma, Ovarian, Squamous Cell Carcinoma, Uterine Dermatologic History: Reports: None. Denies: Eczema, Psoriasis - Infectious Disease History Infectious Disease History: Reports: Chicken Pox, Rubella, Other (See Below). Denies: C-Difficile, Measles, Meningitis, Mononucleosis, MRSA, Mumps, Novel Coronavirus, Rheumatic Fever, Scarlet Fever, Shingles, TB, VRE Other Infectious Disease History: Severe norovirus infection in about 2017 requiring hospitalization for her GI symptoms. - Past Surgical History Head Surgeries/Procedures: Reports: None HEENT Surgical History: Reports: Oral Surgery, Other (See Below). Denies: Adenoidectomy, Cataract Surgery, Eye Surgery, Laser Surgery, LASIK, Myringotomy w Tube(s), Naso-Sinus Surgery, Tonsillectomy Other HEENT Surgeries/Procedures: Multiple teeth extractions with no partials, etc. Cardiovascular Surgical History: Reports: None. Denies: Varicose Respiratory Surgical History: Reports: None. Denies: Thoracentesis GI Surgical History: Reports: Colonoscopy, Other (See Below). Denies: Appendectomy, EGD, Hernia, Abdominal, Hernia, Inguinal, Hernia Repair/Other, Polypectomy Other GI Surgeries/Procedures: Colonoscopy in her early 60s. Anoscopy in about 2006. Female Surgical History: Reports: Tubal Ligation, Other (See Below). Denies: Breast Biopsy, Breast Implant, Section, D&C, Hysterectomy, Oophorectomy, Salpingo-Oophorectomy Other Female Surgeries/Procedures: Bilateral tubal ligation 1984. Endocrine Surgical History: Reports: None. Denies: Thyroid Biopsy Neurological Surgical History: Reports: None. Denies: C-Spine, Discectomy, Laminectomy, Lumbar Spine, Sacral Spine, Spinal Fusion, Vertebroplasty Musculoskeletal Surgical History: Reports: Arthroscopic Knee, Arthroscopic Procedure, ORIF, Shoulder Surgery, Other (See Below). Denies: Carpal Tunnel, Ganglion Cyst, Joint Replacement Other Musculoskeletal Surgeries/Procedures:: Right hand fingers 1 and 2 fusion with ORIF and nerve transplant in about 2016. Right knee arthroscopic surgery in 1967 with subsequent open right knee surgery in 1977. Bilateral bunionectomy, hammertoe, and neuroma excisions in the . Oncologic Surgical History: Reports: None Dermatological Surgical History: Reports: None - Past Imaging History Past Imaging History: Reports: Cardiac Echo, MRI (MRI of the head/auditory canal in her 60s.) Social & Family History - Tobacco Use Tobacco Use Status *Q: Never Tobacco User Tobacco Use Within Last Twelve Months: No Used Tobacco, but Quit: No Smoking Cessation Information Provided To Patient: No Second Hand Smoke Exposure: No Second Hand Smoke Education Provided: No - Caffeine Use Caffeine Use: Reports: Soda (Very occasional), Tea (1 cup/day). Denies: Coffee, Energy Drinks - Alcohol Use Alcohol Use History: No Days Per Week of Alcohol Use: 0 Number of Drinks Per Day: 0 Number of Drinks Per Day Comment: No previous DWIs, problems with alcohol abuse, etc. 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 ED EXAM, GENERAL - Physical Exam Exam: See Below Exam Limited By: No Limitations General Appearance: Alert, WD/WN, No Apparent Distress Eye Exam: Bilateral Eye: EOMI, Normal Fundi (No nystagmus), PERRL Ears: Normal External Exam, Normal Canal, Normal TMs, Hearing Loss (Stable chronic left-sided hearing loss by history) Nose: Normal Inspection, Normal Mucosa, No Blood Throat/Mouth: Normal Inspection, Normal Lips, Normal Teeth (Multiple missing teeth with no acute infection), Normal Gums, Normal Oropharynx, Normal Voice, No Airway Compromise. No: Dysphagia, Perioral Cyanosis Head: Atraumatic, Normocephalic. No: Facial Swelling, Facial Tenderness, Sinus Tenderness Neck: Supple, Non-Tender, Full Range of Motion, Carotid Bruit (Mild bilateral carotid bruits). No: Lymphadenopathy (L), Lymphadenopathy (R), Thyromegaly Respiratory/Chest: No Respiratory Distress, Lungs Clear, Normal Breath Sounds, No Accessory Muscle Use, Chest Non-Tender. No: Pleural Rub, Retractions Cardiovascular: Normal Peripheral Pulses, Regular Rate, Rhythm, No Edema, No Gallop, No JVD, No Murmur, No Rub. No: Gallop/S3, Gallop/S4, Friction Rub Peripheral Pulses: 2+: Radial (L), Radial (R) GI/Abdominal: Normal Bowel Sounds, Soft, Non-Tender, No Organomegaly, No Distention, No Abnormal Bruit, No Mass, Pelvis Stable. No: Guarding (Female) Exam: Deferred Rectal (Female) Exam: Deferred Back Exam: Full Range of Motion, Other (Mild scoliosis.). No: CVA Tenderness (L), CVA Tenderness (R), Muscle Spasm, Paraspinal Tenderness, Vertebral Tenderness Extremities: No Pedal Edema, Normal Capillary Refill, Arm Pain (Mild localized palpation pain over the right AC joint with no appreciable dislocation, crepitation or deformity), Limited Range of Motion (All joints including left shoulder secondary to severe rheumatoid arthritis), Other (Severe chronic rheumatoid arthritis changes including her wrists, fingers, hands, etc. stable by patient history). No: Jey's Sign Neurological: Alert, Oriented, CN II-XII Intact, Normal Cognition, Normal Gait, No Motor/Sensory Deficits Psychiatric: Normal Affect, Normal Mood Skin Exam: Ecchymosis (Mild on the extensor surface of her left hand with no evidence of other significant acute injury with stable severe rheumatoid changes as above). No: Diaphoretic, Wound/Incision Lymphatic: No Adenopathy ED TRAUMA EXTREMITY PROCEDURES - Splinting Right Upper Extremity Splint Site: Right shoulder Pre-Procedure NV Status: Normal Post-Procedure NV Status: Normal Splint Material: Other (Preformed shoulder/arm immobilizer) Splint Design: Other (As above) Applied & Form Fitted By: Nurse Provider Post-Splint Application NV Check: NV Status Normal, Good Position Complications: Yes Course - Vital Signs Last Recorded V/S: Last Vital Signs Temp 36.8 C 09/10/20 11:47 Pulse 86 09/10/20 11:47 Resp 20 09/10/20 11:47 BP 119/44 L 09/10/20 11:47 Pulse Ox 100 09/10/20 11:47 Vital Signs - 24 hr 09/10/20 11:47 Temperature [ 36.8 C Temporal] Pulse, 86 Peripheral [ Left Pulse Oximetry] Respiratory 20 Rate Blood Pressure 119/44 L [Left Upper Arm ] O2 Sat by Pulse 100 Oximetry - Orders/Labs/Meds Orders: Active Orders 24 hr Category Date Time Status Shoulder Comp Rt [CR] Stat Exams 09/10/20 11:55 Taken Durable Medical Equipment for Discharge [DME for Oth 09/10/20 12:29 Ordered Discharge] [COMM] Routine Obtain Past Medical Record [OM.PC] Routine Oth 09/10/20 11:55 Active Labs: None Meds: None - Radiology Interpretation Free Text/Narrative:: X-rays of the right shoulder, complete, shows evidence of a possible hairline minimally displaced distal right clavicular fracture, however difficult to assess secondary to her severe osteoarthritis, rheumatoid arthritis, and osteoporosis. No significant AC joint separation Departure - Departure Time of Disposition: 13:05 Disposition: Home, Self-Care 01 Condition: Fair Clinical Impression: Mixed anxiety depressive disorder Rheumatoid arthritis Qualifiers: Rheumatoid arthritis location: multiple sites Rheumatoid factor presence: unspecified presence Qualified Code(s): M06.9 - Rheumatoid arthritis, u nspecified Closed fracture of clavicle Qualifiers: Encounter type: initial encounter Clavicle location: lateral end Fracture alignment: displaced Laterality: right Qualified Code(s): S42.031A - Displaced fracture of lateral end of right clavicle, initial encounter for closed fracture - Discharge Information *PRESCRIPTION DRUG MONITORING PROGRAM REVIEWED*: Not Applicable *COPY OF PRESCRIPTION DRUG MONITORING REPORT IN PATIENT ANTWAN: Not Applicable Instructions: How To Use a Sling, Desv-nm-Bmed, Clavicle Fracture (Distal End) With [facility] Forms: ED Department Discharge Additional Instructions: 1. Followup with your regular provider in 7 days with recommended repeat x-rays of your right shoulder at that time as directed. Bring these discharge instructions with you to that visit. Consider possible referral to an orthopedic surgeon, physical therapy, etc. at that time depending on your cl inical course, x-ray results, etc. 2. Ice packs as needed/directed 3. Wear arm/shoulder immobilizer at all times with exception of bathing until otherwise directed by your regular providers 4. Activity restrictions as discussed with limited use of your right hand/arm 5. Immediately after this visit verify that your cellular telephone's voicemail has been activated and is empty. Also verify that your home telephone's answering machine is operating properly and has space to receive messages. Note that it is sometimes necessary for us to be able to contact you at a later date to discuss your medical care. 6. Please remember that we are ALWAYS here for you and want to answer any questions you may have. Feel free to call the hospital any time and we call you back VITOR. Sepsis Event Note (ED) - Focused Exam Vital Signs: Vital Signs Temp Pulse Resp BP Pulse Ox 09/10/20 11:47 36.8 C 86 20 119/44 L 100 - Problem List & Annotations (1) Closed fracture of clavicle SNOMED Code(s): 33921244 Code(s): S42.009A - FRACTURE OF UNSP PART OF UNSP CLAVICLE, INIT FOR CLOS FX Status: Acute Priority: High Onset Date: 09/10/20 Annotation/Comment:: Suspected minimally displaced distal right clavicular fracture with patient placed in a shoulder/arm immobilizer as above. Close follow-up by her regular provider as per discharge instructions. Further orthopedic surgeon, physical therapy, etc. consultation depending on her clinical course. The patient does not tolerate NSAIDs secondary to abuse with this medication in the past. Otherwise symptomatic relief as per discharge instructions. Qualifiers: Encounter type: initial encounter Clavicle location: lateral end Fracture alignment: displaced Laterality: right Qualified Code(s): S42.031A - Displaced fracture of lateral end of right clavicle, initial encounter for closed fracture (2) Mixed anxiety depressive disorder SNOMED Code(s): 452909648 Code(s): F41.8 - OTHER SPECIFIED ANXIETY DISORDERS Status: Chronic Priority: Medium Annotation/Comment:: Stable by history (3) Rheumatoid arthritis SNOMED Code(s): 09068938 Code(s): M06.9 - RHEUMATOID ARTHRITIS, UNSPECIFIED Status: Chronic Priority: Medium Annotation/Comment:: Stable by history with current aggressive therapy as above. No evidence of other significant injuries. Qualifiers: Rheumatoid arthritis location: multiple sites Rheumatoid factor presence: unspecified presence Qualified Code(s): M06.9 - Rheumatoid arthritis, unspecified - Problem List Review Problem List Initiated/Reviewed/Updated: Yes - My Orders Last 24 Hours: My Active Orders 09/10/20 11:55 Shoulder Comp Rt [CR] Stat Obtain Past Medical Record [OM.PC] Routine 09/10/20 12:29 Durable Medical Equipment for Discharge [DME for Discharge] [COMM] Routine - Assessment/Plan Last 24 Hours: My Active Orders 09/10/20 11:55 Shoulder Comp Rt [CR] Stat Obtain Past Medical Record [OM.PC] Routine 09/10/20 12:29 Durable Medical Equipment for Discharge [DME for Discharge] [COMM] Routine Assessment:: As above Plan: As above. Extensive precautions were given to the patient, who is in agreement with the treatment plan. See Patient Instructions for further treatment and plan.
[2020-09-10 11:55] VITALS: BP 119/44; PULSE 86
== END 2020-09-10 13:05 | disposition home or self-care (01) ==
LOC: LL.ED 11:47
DX: S42.031A Displaced fracture of lateral end of right clavicle, initial encounter for closed fracture (principal); M06.9 Rheumatoid arthritis, unspecified; F41.8 Other specified anxiety disorders; J44.9 Chronic obstructive pulmonary disease, unspecified; Z88.6 Allergy status to analgesic agent; Z88.8 Allergy status to other drugs, medicaments and biological substances; Z88.5 Allergy status to narcotic agent; Z79.899 Other long term (current) drug therapy
CPT/HCPCS: 73030-RT; 99283

== ENCOUNTER 2021-08-29 16:08 | Emergency (ER) | payer MEDICARE, BC ==
[2021-08-29 16:19] VITALS: BP 130/74; PULSE 76
--- NOTE | 2021-08-29 16:23 | EDM.PDOC ---
ED HPI GENERAL MEDICAL PROBLEM - General Chief Complaint: Lower Extremity Injury/Pain Stated Complaint: right knee pain Time Seen by Provider: 08/29/21 16:12 Source of Information: Reports: Patient, EMS History Limitations: Reports: No Limitations - History of Present Illness INITIAL COMMENTS - FREE TEXT/NARRATIVE: Patient presents via EMS for right knee pain. She has a history of rheumatoid and osteoarthritis along with previous surgery on this knee. She opened her screen door that is with a broken hinge and a zita of wind blew it wide open. She reached for the door, slipped down and the door came back and slammed on the anterior right knee. She took a tramadol ( the strongest medication she takes for this) and it did help. she is limping to walk on this and is worried she did something to the bones so wanted an x-ray. has a cane at home, can get a ride home. does not want anything stronger for pain. EMS transport with [facility] and no other interventions Onset: Today Location: Reports: Lower Extremity, Right Quality: Reports: Throbbing Severity: Moderate Improves with: Reports: Cold Therapy, Medication Worsens with: Reports: Movement - Related Data Allergies Allergy/AdvReac Type Severity Reaction Status Date / Time adalimumab [From Humira] Allergy Other Verified 08/29/21 16:10 aspirin Allergy Stomach Verified 08/29/21 16:10 Ache atorvastatin Allergy Joint Pain Verified 08/29/21 16:10 codeine Allergy Headache Verified 08/29/21 16:10 hydrocodone Allergy Headache Verified 08/29/21 16:10 ibuprofen Allergy Stomach Verified 08/29/21 16:10 Ache methotrexate Allergy Other Verified 08/29/21 16:10 minocycline Allergy Other Verified 08/29/21 16:10 rofecoxib Allergy Other Verified 08/29/21 16:10 sertraline Allergy Other Verified 08/29/21 16:10 venlafaxine [From Effexor] Allergy Other Verified 08/29/21 16:10 Home Meds: Home Meds ALPRAZolam [Alprazolam] 0.25 mg PO BID 02/17/17 [History] Abatacept [Orencia] 500 mg IV Q30D 02/17/17 [History] Acetaminophen [Tylenol Extra Strength] 500 mg PO Q6H PRN 02/17/17 [History] Taty/Cell/Lipas/Malt/Prt/Lac/in [Digestive Enzymes Capsule] 1 each PO DAILY 02/17/17 [History] Cholecalciferol (Vitamin D3) [Vitamin D3] 2,000 unit PO DAILY 02/17/17 [History] Cranberry Fruit Concentrate [Cranberry] 1 cap PO DAILY 02/17/17 [History] Dextran 70/Hypromellose [Artificial Tears Eye Drops] 15 ml OP BID 02/17/17 [History] atenoloL [Atenolol] 50 mg PO DAILY 02/17/17 [History] predniSONE [Prednisone] 5 mg PO DAILY 02/17/17 [History] traMADol [Ultram] 1 - 2 tab PO Q6H PRN 02/17/17 [History] Calcium Carbonate [Tums Extra Strength] 1 tab PO Q4H PRN 11/25/19 [History] Multivitamin [Poly-Vitamin] 1 tab PO DAILY 11/25/19 [History] diphenhydrAMINE HCL [Benadryl] 1 tab PO ASDIRECTED PRN 11/25/19 [History] predniSONE [Prednisone] 1 mg PO DAILY 11/25/19 [History] Past Medical History HEENT History: Reports: Hard of Hearing, Impaired Vision, Otitis Media, Other (See Below). 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 Patient wears glasses, dry eye syndrome. Cardiovascular History: Reports: Arrhythmia, Cardiomyopathy, Other (See Below). Denies: Afib, Aneurysm, Blood Clots/VTE/DVT, CAD, Heart Failure, High Cholesterol, Hypertension, SC, PVD, Syncope Other Cardiovascular History: Unknown type of tachycardia with current beta marcai therapy, cardiomegaly by chest x-ray on 06/28/04 with no heart disease by distant echocardiogram per patient history Respiratory History: Reports: COPD, Intubation, Previous, Pulmonary Fibrosis, Other (See Below). Denies: Asthma, Bronchitis, Recurrent, Intubation, Difficult, PE, Pneumonia, Recurrent, Pneumothorax, Sleep Apnea, TB Other Respiratory History: COPD and pulmonary fibrosis by chest x-ray with no current medical therapy Gastrointestinal History: Reports: Chronic Constipation, Gastritis, Hemorrhoids, Other (See Below). Denies: Celiac Disease, Cholelithiasis, Chronic Diarrhea, Colon Polyp, Fecal Incontinence, GERD, GI Bleed, Hepatitis, Hiatal Hernia, Inflammatory Bowel Disease, Irritable Bowel Syndrome, Jaundice, Pancreatitis, PUD Other Gastrointestinal History: Gastritis secondary to NSAIDs therapy Genitourinary History: Reports: UTI, Recurrent. Denies: Acute Renal Failure, Chronic Renal Insuffiency, Renal Calculus, STD, Urinary Incontinence [employer] History: Reports: . Denies: Dysfunctional Uterine Bleeding, Endometriosis, Fibroids, Spontaneous , Therapeutic Other [employer] History: Menopause in her 50s. Full term without complications during pregnancies or deliveries. Musculoskeletal History: Reports: Arthritis, Back Pain, Chronic, Neck Pain, Chronic, Osteoarthritis, Osteoporosis, RA, Other (See Below). Denies: Amputation, Fracture, Gout, SLE Other Musculoskeletal History: Severe rheumatoid arthritis initially diagnosed in 1967 at age 18 with current DMARD and prednisone therapy. Scoliosis. Neurological History: Reports: None. Denies: Alzheimers Disease, Cerebral Aneurysms, Concussion, CVA, Headaches, Chronic, Head Trauma, Migraines, MS, Neuropathy, Peripheral, Parkinson's, Reflex Sympathetic Dystrophy, Seizure, TIA Psychiatric History: Reports: Addiction, Anxiety, Depression, Other (See Below). Denies: Abuse, Victim of, ADD, ADHD, Alzheimers Disease, Dementia, Psych Hospitalization(s), PTSD, Suicide Attempt, Suicidal Ideation Other Psychiatric History: Chronic Ultram and Xanax use. Endocrine/Metabolic History: Reports: Osteopenia, Osteoporosis, Vitamin D Deficiency. Denies: Diabetes, Type I, Diabetes, Type II, Hypothyroidism, IDDM, Obesity/BMI 30+ Hematologic History: Reports: None. Denies: Anemia, B12 Deficiency, Blood Transfusion(s), Iron Deficiency Immunologic History: Reports: Immunosuppression, Other (See Below). Denies: SLE Other Immunologic History: Immunosuppression secondary to current therapy for her rheumatoid arthritis Oncologic (Cancer) History: Reports: None. Denies: Basal Cell Carcinoma, Cervix, Hodgkin's Lymphoma, Leukemia, Lymphoma, Malignant Melanoma, Non- Hodgkin's Lymphoma, Ovarian, Squamous Cell Carcinoma, Uterine Dermatologic History: Reports: None. Denies: Eczema, Psoriasis - Infectious Disease History Infectious Disease History: Reports: Chicken Pox, Rubella, Other (See Below). Denies: C-Difficile, Measles, Meningitis, Mononucleosis, MRSA, Mumps, Novel Coronavirus, Rheumatic Fever, Scarlet Fever, Shingles, TB, VRE Other Infectious Disease History: Severe norovirus infection in about 2017 requiring hospitalization for her GI symptoms. - Past Surgical History Head Surgeries/Procedures: Reports: None HEENT Surgical History: Reports: Oral Surgery, Other (See Below). Denies: Adenoidectomy, Cataract Surgery, Eye Surgery, Laser Surgery, LASIK, Myringotomy w Tube(s), Naso-Sinus Surgery, Tonsillectomy Other HEENT Surgeries/Procedures: Multiple teeth extractions with no partials, etc. Cardiovascular Surgical History: Reports: None. Denies: Varicose Respiratory Surgical History: Reports: None. Denies: Thoracentesis GI Surgical History: Reports: Colonoscopy, Other (See Below). Denies: Appendectomy, EGD, Hernia, Abdominal, Hernia, Inguinal, Hernia Repair/Other, Polypectomy Other GI Surgeries/Procedures: Colonoscopy in her early 60s. Anoscopy in about 2006. Female Surgical History: Reports: Tubal Ligation, Other (See Below). Denies: Breast Biopsy, Breast Implant, Section, D&C, Hysterectomy, Oophorectomy, Salpingo-Oophorectomy Other Female Surgeries/Procedures: Bilateral tubal ligation 1984. Endocrine Surgical History: Reports: None. Denies: Thyroid Biopsy Neurological Surgical History: Reports: None. Denies: C-Spine, Discectomy, Laminectomy, Lumbar Spine, Sacral Spine, Spinal Fusion, Vertebroplasty Musculoskeletal Surgical History: Reports: Arthroscopic Knee, Arthroscopic Procedure, ORIF, Shoulder Surgery, Other (See Below). Denies: Carpal Tunnel, Ganglion Cyst, Joint Replacement Other Musculoskeletal Surgeries/Procedures:: Right hand fingers 1 and 2 fusion with ORIF and nerve transplant in about 2016. Right knee arthroscopic surgery in 1967 with subsequent open right knee surgery in 1977. Bilateral bunionectomy, hammertoe, and neuroma excisions in the . Oncologic Surgical History: Reports: None Dermatological Surgical History: Reports: None - Past Imaging History Past Imaging History: Reports: Cardiac Echo, MRI (MRI of the head/auditory canal in her 60s.) Social & Family History - Caffeine Use Caffeine Use: Reports: Soda (Very occasional), Tea (1 cup/day). Denies: Coffee, Energy Drinks - Recreational Drug Use Recreational Drug Use: No Drug Use in Last 12 Months: No - Living Situation & Occupation Living situation: Reports: (2014, 2 children), Alone Occupation: Retired ([employer] at about age 56) Review of Systems - Review of Systems Review Of Systems: See Below Constitutional: Reports: No Symptoms. Denies: Chills, Diaphoresis Eyes: Reports: No Symptoms. Denies: Inflammation, Vision Change Ears: Reports: No Symptoms. Denies: Dizziness, Pain Nose: Reports: No Symptoms Mouth/Throat: Reports: No Symptoms. Denies: Lip Swelling, Throat Swelling, Painful Swallowing Respiratory: Reports: No Symptoms. Denies: Shortness of Breath, Cough Cardiovascular: Reports: No Symptoms. Denies: Chest Pain GI/Abdominal: Reports: No Symptoms. Denies: Abdominal Pain, Constipation, Diarrhea Musculoskeletal: Reports: Joint Pain (right knee acute on chronic, rest of joints generalized, chronic) Neurological: Reports: No Symptoms ED EXAM, GENERAL - Physical Exam Exam: See Below Exam Limited By: No Limitations General Appearance: Alert, WD/WN, No Apparent Distress Eye Exam: Bilateral Eye: Normal Inspection Ears: Normal External Exam, Hearing Grossly Normal Nose: Normal Inspection Throat/Mouth: Normal Teeth, Normal Oropharynx, Normal Voice, No Airway Compromise Head: Atraumatic Respiratory/Chest: No Respiratory Distress, Lungs Clear, Normal Breath Sounds Cardiovascular: Regular Rate, Rhythm, No Edema Extremities: Joint Swelling (right knee with obvious bone and bone deformity. no bruising or lesions. lacks 5 degrees of terminal extension, flexion to 50 degrees. painful movement. minimal joint effusion), Other (multiple joints with deformities consistent with chronic arthritic changes) Neurological: Alert, Oriented Course - Vital Signs Last Recorded V/S: Last Vital Signs Temp 36.3 C 08/29/21 16:10 Pulse 76 08/29/21 16:10 Resp 16 08/29/21 16:10 BP 130/74 08/29/21 16:10 Pulse Ox 100 08/29/21 16:10 - Orders/Labs/Meds Orders: Active Orders 24 hr Category Date Time Status Knee 1V or 2V Rt [CR] Stat Exams 08/29/21 16:09 Ordered oxyCODONE ER [OxyCONTIN] Med 08/29/21 20:00 Ordered 10 mg PO Q12HR Medication Orders Oxycodone HCl (Oxycodone Er 10 Mg Tab.Er) 10 mg PO Q12HR KLEBER Stop: 08/30/21 20:01 Meds: Medications Generic Name Dose Route Start Last Admin Trade Name Fercho PRN Reason Stop Dose Admin Oxycodone HCl 10 mg 08/29/21 20:00 Oxycodone Er 10 Mg Tab.Er PO 08/30/21 20:01 Q12HR KLEBER - Radiology Interpretation Free Text/Narrative:: severe djd, bone on bone arthritis. No acute, preliminary read - Re-Assessments/Exams Free Text/Narrative Re-Assessment/Exam: 08/29/21 offered pain medication, declines, want x-ray 16:30 discussed severe DJD and bone and bone joint. No acute fractures seen. Allergic to hydrocodone, codeine. has tolerated oxycontin but does not like to take. It will be after 17:00 on Wednesday when her ride will get here. Will give her #3 oxycontin to take every 12 hours prn pain not relieved by tramadol. She will see her PCP and orthopedic physician as needed. Has joanie wraps and cane at home. Departure - Departure Time of Disposition: 16:31 Disposition: Home, Self-Care 01 Condition: Good Clinical Impression: Knee pain - Discharge Information Instructions: Acute Knee Pain, Adult, [id number] Referrals: Kirstin Mendez PA-C [Primary Care Provider] - Forms: ED Department Discharge Additional Instructions: Ice, use an joanie wrap and walk with your cane. You are given #3 of ocycontin tablets to take one every 12 hours as needed for severe pain not helped by rest and your regular tramadol. follow up with your PCP next week as needed Sepsis Event Note (ED) - Focused Exam Vital Signs: Vital Signs Temp Pulse Resp BP Pulse Ox 08/29/21 16:10 36.3 C 76 16 130/74 100 - My Orders Last 24 Hours: My Active Orders 08/29/21 16:09 Knee 1V or 2V Rt [CR] Stat 08/29/21 20:00 oxyCODONE ER [OxyCONTIN] 10 mg PO Q12HR - Assessment/Plan Last 24 Hours: My Active Orders 08/29/21 16:09 Knee 1V or 2V Rt [CR] Stat 08/29/21 20:00 oxyCODONE ER [OxyCONTIN] 10 mg PO Q12HR
[2021-08-29] MEDS ORDERED: oxyCODONE 5 MG Tab PO PRN (16:55)
[2021-08-29] MEDS ORDERED: oxyCODONE ER 10 MG TAB.ER PO SCH (20:00)
== END 2021-08-29 17:20 | disposition home or self-care (01) ==
LOC: LL.ED 16:08
DX: M25.561 Pain in right knee (principal); J44.9 Chronic obstructive pulmonary disease, unspecified; Z88.8 Allergy status to other drugs, medicaments and biological substances; Z88.6 Allergy status to analgesic agent; Z88.5 Allergy status to narcotic agent; Z88.1 Allergy status to other antibiotic agents; Z79.899 Other long term (current) drug therapy
CPT/HCPCS: 73560; 99284; A9270

== ENCOUNTER 2022-05-23 19:56 | Emergency (ER) | payer MEDICARE, BC ==
[2022-05-23 20:52] LABS: ANION GAP 6.2 meq/L (7-15); CHLORIDE,CL 102 mmol/L (98-107); ESTIMATED GFR 62 mL/min (>=60); SODIUM,NA 139 mmol/L (136-145)
[2022-05-23 21:47] VITALS: BP 135/89; PULSE 84
== END 2022-05-23 21:46 | disposition home or self-care (01) ==
LOC: LL.ED 19:56
DX: K62.5 Hemorrhage of anus and rectum (principal); J44.9 Chronic obstructive pulmonary disease, unspecified; Z88.8 Allergy status to other drugs, medicaments and biological substances; Z88.6 Allergy status to analgesic agent; Z88.5 Allergy status to narcotic agent; Z88.1 Allergy status to other antibiotic agents; Z79.899 Other long term (current) drug therapy
CPT/HCPCS: 36415; 80053; 85025; 99283; 99284

== ENCOUNTER 2024-09-23 12:31 | Emergency (ER) | payer MEDICARE, BC ==
[2024-09-23 12:44] VITALS: BP 99/59; PULSE 81
== END 2024-09-23 13:45 | disposition home or self-care (01) ==
LOC: LL.ED 12:31 → SUPCPDRO 12:31 → LL.ED 13:45
DX: S20.212A Contusion of left front wall of thorax, initial encounter (principal); J44.9 Chronic obstructive pulmonary disease, unspecified; Z79.899 Other long term (current) drug therapy; Z79.52 Long term (current) use of systemic steroids; Z88.8 Allergy status to other drugs, medicaments and biological substances; Z88.6 Allergy status to analgesic agent; Z88.5 Allergy status to narcotic agent; Z88.1 Allergy status to other antibiotic agents; W01.0XXA Fall on same level from slipping, tripping and stumbling without subsequent striking against object, initial encounter
CPT/HCPCS: 71101-LT; 99283

== ENCOUNTER 2025-08-02 14:58 | Emergency (ER) | payer MEDICARE, BC ==
[2025-08-02 15:05] VITALS: BP 110/71; PULSE 93
== END 2025-08-02 18:20 | disposition home or self-care (01) ==
LOC: LL.ED 14:58
DX: S43.101A Unspecified dislocation of right acromioclavicular joint, initial encounter (principal); I10 Essential (primary) hypertension; J44.9 Chronic obstructive pulmonary disease, unspecified; Z88.5 Allergy status to narcotic agent; Z88.6 Allergy status to analgesic agent; Z88.8 Allergy status to other drugs, medicaments and biological substances; Z79.899 Other long term (current) drug therapy; W18.30XA Fall on same level, unspecified, initial encounter
CPT/HCPCS: 70450; 72170; 72220; 73030-RT; 99284